=== PATIENT | male | born 1990 | race Caucasian/White ===

== ENCOUNTER 2021-03-03 12:00 | Emergency (ER) | payer OTHER ==
[~2021-03-03] VITALS: Ht 177.8 cm; Wt 77.6 kg
--- NOTE | 2021-03-03 12:20 | NUR ---
MD at bedside for assessment, patient complaints of abdomen pain
[2021-03-03] MEDS ORDERED: KETOROLAC TROMETHAMINE 15 MG INJ IVP ONE (12:30)
[2021-03-03] MEDS ORDERED: IV NORMAL SALINE 1000 ML BAG IV ONE (12:30)
[2021-03-03] MEDS ORDERED: KETOROLAC TROMETHAMINE 15 MG INJ ONE (12:39)
[2021-03-03 12:41] LABS: HEMATOCRIT 42.1 % (36.7-47.1); MEAN CORPUSCULAR HEMOGLOBIN 33.8 uug (23.8-33.4); MEAN CORPUSCULAR VOLUME 98.8 fL (73.0-96.2); PLATELET COUNT (AUTO) 209 K/uL (152-348)
[2021-03-03 12:42] LABS: CREATININE 1.1 mg/dL (0.6-1.3); POTASSIUM 4.3 mmol/L (3.5-5.1)
[2021-03-03 12:48] LABS: BILIRUBIN,DIRECT 0.2 mg/dL (0.0-0.2); TOTAL PROTEIN, SERUM 6.6 g/dL (6.4-8.2)
[2021-03-03] MEDS ORDERED: IOHEXOL 300MG/ML 100 ML INFUS..BTL ONE (13:03)
[2021-03-03] MEDS ORDERED: IV NORMAL SALINE 250 ML IV ONE (13:06)
--- NOTE | 2021-03-03 13:10 | NUR ---
Patient left for CT at this time
--- NOTE | 2021-03-03 13:25 | NUR ---
Patient returned from CT
[2021-03-03] MEDS ORDERED: METH4TAB3 PO (15:41)
--- NOTE | 2021-03-03 15:52 | NUR ---
Patient discharged to home in stable condition. Able to ambulate without difficulty, no signs of acute distress noted, Rx given. Written and verbal after care instructions given. Patient verbalizes understanding of instructions. Stressed follow up or return to ER for worsening s/s.
[2021-03-03 15:55] VITALS: BP 126/70
== END 2021-03-03 15:50 | disposition home or self-care (01) ==
LOC: ER 12:00
DX: J02.9 Acute pharyngitis, unspecified (principal); Z88.0 Allergy status to penicillin; L03.222 Acute lymphangitis of neck
CPT/HCPCS: 70491; 74176; 80048; 80076; 83605; 83690; 85025; 85730; 86403; 87040 ×2; 96361; 96374; 99285; J1885; Q9967; 36415; 87070; A4663; J7030; J7050